=== PATIENT | male | born 2005 | race Caucasian/White ===

== ENCOUNTER 2025-06-24 08:13 | Emergency (ER) | payer MEDICAID ==
[~2025-06-24] VITALS: Ht 180.3 cm; Wt 47.0 kg
--- NOTE | 2025-06-24 08:53 | Physician Documentation ---
History of Present Illness ~ General Chief Complaint: General Stated Complaint: SEE CHIEF Time Seen by MD: 08:35 Source: patient Mode of Arrival: POV, EMS Exam Limitations: no limitations History of Present Illness Initial Comments Patient who states he was out in the [place] for the last 9 days. States he went out on his own with no food and water because he wanted to see if he could do it. For the last 4 days he has been eating bugs and berries and drinking [place] [employer] [place] water. Denies being suicidal or any homicidal ideation. States that he does not want any IV fluids or any blood drawn. He would like some juice and something to eat. He has scrapes on his arms and legs from being in the bushes. States he had a rate in his tetanus shot and does not want another tetanus shot. He has some sap from the trees on the tops of his feet to because he wanted to prevent them from getting sunburned. Denies any medical problems. Medication Reconciliation Allergies: Coded Allergies: No Known Allergies (Unverified , 06/24/25) Scheduled Cephalexin*Monohydrate* (Keflex*), 1 CAP PO BID Review of Systems All Other Systems at this time: Reviewed and Negative Physical Exam Physical Exam Vital Signs: Temperature: 97.5, Source: Oral, Heart Rate: 64, Respiratory Rate: 16, BP: 115/83, Pulse Oximetry: 100, Weight: 47.000 General Appearance: alert, no apparent distress Head: normal inspection Face: normal inspection Pupils/EOM/Fundus: PERRLA, EOM intact Neck: non-tender, full range of motion Respiratory: lungs clear, normal breath sounds Cardiovascular: regular rate, rhythm, no murmur Gastrointestinal: normal palpation, non-tender Neurologic: oriented x4, memory intact Motor / Sensory: no motor deficit, no sensory deficit Psychiatric: normal mood/affect Skin: normal color, warm/dry, other (Multiple scratches and scrapes on both forearm this and both lower extremities, 1 cm abrasion wound on the dorsal aspect of the left great toe, 2 1 cm blisters on the bottom of each foot) Progress Progress Note Patient who has been on the [employer] for 8-9 days. Brought in by EMS. Patient awake and oriented x4. Refusing any IV therapy or blood test. Multiple scrapes and abrasions. No obvious infection at this point but going to place him on Keflex to help prevent infection. Did clean a bunch of sap off of his feet. Stable in the ED. did give 1 hydrocodone for pain as it was difficult to get some of the sap off of his feet. Discharging home. He is to follow up with his doctor. Return here if new or worsening symptoms prior follow up. Results/Orders Results/Orders Completed Orders - TIM GREEN MD Hydrocodone/Apap 5/325mg Tab ([place] 5/32 (06/24/25 09:35) Vital Signs 06/24/25 06/24/25 08:17 09:29 Temp 97.5 Pulse 64 Resp 16 B/P (MAP) 115/83 Pulse Ox 100 Departure Disposition: HOME / SELF CARE / HOMELESS Impression: Primary Impression: Abrasion, left foot, initial encounter Additional Impression: Abrasions of multiple sites Condition: Stable Additional Instructions: You need to keep the wounds clean by washing them daily with warm soapy water. Complete your antibiotics. Follow up if any sign of infection. Follow up with your doctor in the next week. Return here if new or worsening symptoms. Referrals: NO PRIMARY CARE PROVIDER (PCP) Prescriptions Cephalexin*Monohydrate* (Keflex*) 500 Mg Capsule 1 CAP PO BID for 7 Days, #14 CAP Prov: TIM GREEN MD 06/24/25 Education Educated: Patient Educated regarding: diagnosis, treatment, need for follow up Signature Scribe Signature: No scribe used Attestation: No scribe used TIM GREEN MD Jun 24, 2025 08:53
[2025-06-24] MEDS ORDERED: CEPH-585 PO (10:09)
[2025-06-24] MEDS: HYDROcodone/acetaminophen 5mg/325mg tablet PO ONE (11:17)
[2025-06-24 12:08] VITALS: BP 110/80; PULSE 65; TEMP 97.2; O2SAT 100
[2025-06-24 12:10] VITALS: RESP 16
== END 2025-06-24 13:30 | disposition home or self-care (01) ==
LOC: ER 08:14
DX: S90.812A Abrasion, left foot, initial encounter (principal); X58.XXXA Exposure to other specified factors, initial encounter; Y93.89 Activity, other specified; Y92.89 Other specified places as the place of occurrence of the external cause; Y99.8 Other external cause status
CPT/HCPCS: 99283; 99285; A6250; A6449